=== PATIENT | female | born 1945 | race Caucasian/White ===

== ENCOUNTER 2020-05-22 18:50 | Outpatient (REF) | payer MEDICARE, SELFPAY ==
[2020-05-22 21:01] LABS: HCT 46.5 % (36.0-46.0); HGB 15.8 g/dL (11.2-15.7); MCH 30.9 pg (27.0-33.0); MCV 90.8 fL (80-95); MPV 10.3 fL (8.0-11.0); Platelet Count 261 10^3/uL (130-400); RBC 5.12 10^6/uL (3.93-5.22); RDW-SD 40.1 fL; WBC 6.36 10^3/uL (4.4-10.8)
[2020-05-22 21:22] LABS: ALT 34 U/L (14-59); AST 23 U/L (15-37); Albumin 3.8 g/dL (3.4-5.0); Alkaline Phosphatase 88 U/L (46-116); Anion Gap 11.1 mmol/L (3-11); BUN 15 mg/dL (7-18); Bilirubin, Total 0.8 mg/dL (0.2-1.0); CO2 27.9 mmol/L (21.0-32.0); CREATININE 0.8 mg/dL (0.55-1.02); Calcium 9.5 mg/dL (8.5-10.1); Chloride 99 mmol/L (98-107); Glucose 243 mg/dL (74-106); Potassium 3.8 mmol/L (3.5-5.1); Sodium 138 mmol/L (136-145); Total Protein 7.8 g/dL (6.4-8.2)
[2020-05-22 21:40] LABS: Hemoglobin A1C 9.6 % (<5.7)
== END 2020-05-22 18:51 | disposition home or self-care (01) ==
LOC: NCHCN 18:50
PROVIDERS: Visit Provider Family Medicine
DX: E11.9 Type 2 diabetes mellitus without complications (principal); R41.3 Other amnesia
CPT/HCPCS: 80053; 85027; 83036

== ENCOUNTER 2020-05-25 22:05 | Outpatient (REF) | payer MEDICARE, SELFPAY ==
[2020-05-25 16:54] LABS: Bilirubin Small (Negative); Blood Trace-intact (Negative); Clarity Cloudy (Clear); Glucose 250 mg/dL (Negative); Ketones 15 mg/dL (Negative); Leukocyte Esterase Small (Negative); Nitrite Negative (Negative); Specific Gravity >= 1.030 (1.005-1.025); pH 5.5 (5-8)
[2020-05-25 16:59] LABS: Bacteria Many HPF (Negative); C & S Indicated? Yes; Casts Negative LPF (Negative); Crystals Negative HPF (Negative); Epithelial Cells Few HPF (Negative); Mucus Trace (Negative); RBC 0-2 HPF (0-2)
== END 2020-05-25 22:06 | disposition home or self-care (01) ==
LOC: NCHCN 22:05
PROVIDERS: Visit Provider Family Medicine
DX: E11.9 Type 2 diabetes mellitus without complications (principal); R41.3 Other amnesia; R82.998 Other abnormal findings in urine
CPT/HCPCS: 81003; 81015; 87086

== ENCOUNTER 2020-05-29 13:07 | Outpatient (REF) | payer MEDICARE, SELFPAY ==
[2020-05-29 22:13] LABS: TSH (W/Ref FT4) 2.11 uIU/mL (0.36-3.74); Vitamin B12 799 pg/mL (193-986)
== END 2020-05-29 13:08 | disposition home or self-care (01) ==
LOC: NCHCN 13:07
PROVIDERS: PCP Family Medicine; Visit Provider Family Medicine
DX: E11.9 Type 2 diabetes mellitus without complications (principal); R41.3 Other amnesia
CPT/HCPCS: 82607; 84443